=== PATIENT | female | born 1990 | race Caucasian/White ===

== ENCOUNTER 2017-09-07 07:15 | Inpatient (IN) | payer BC ==
[2017-09-07] MEDS ORDERED: ELECTROLYTE-148 SOLN 1,000 ML IV ONE (07:35)
[2017-09-07 08:11] VITALS: BMI 48.6
[2017-09-07] MEDS ORDERED: CITRIC ACID/SODIUM CITRATE 30 ML UNIT-DOSE CUP PO ONE (08:20)
[2017-09-07] MEDS ORDERED: morphine SULFATE/Preservative Free 0.5 MG/ML (1cc Syringe) ONE (09:04)
[2017-09-07] MEDS ORDERED: BUPIVACAINE 0.75% IN DEXTROSE/PF 2ML AMPULE NR ONE (09:04)
[2017-09-07] MEDS ORDERED: ePHEDrine SULFATE 50 MG/1 ML AMPULE ONE (09:06)
[2017-09-07] MEDS ORDERED: OXYTOCIN 20 UNITS in 0.9% NS 20 UNIT/1,000 ML INFUS.BAG IV ONE ×2 (09:37→10:43)
--- NOTE | 2017-09-07 09:42 | HP ---
Past Medical History - Admission History of Present Illness: 27 yo @ 39 1/7 wks by first trimester ultrasound, EDC 09/13/2017 complicated by: 1. Obesity - prepregnancy BMI 42; 29 wt gain this , normal early GCT and GCT at 32 wks Reassuring NST Q wkly Recent EFW 08/11/2017 - 3037g 84% 2. Prior CD, desiring repeat 3. 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 Weeks Gestation by Dates: 40.3 ...EDC by Dates: 09/04/17 ...EDC by Sono: 09/13/17 Heme/Onc: No: Anemia - Past Surgical History Past Surgical History: Yes: Hx Myomectomy: No Hx Transabdominal Cerclage: No - Smoking History Smoking history: Never smoked Have you smoked in the past 12 months: No Aproximately how many cigarettes per day: 0 - Alcohol/Substance Use Hx Alcohol Use: No History of Substance Use: reports: None - Social History History of Recent Travel: No Home Medications - Allergies Allergies/Adverse Reactions: Allergies Allergy/AdvReac Type Severity Reaction Status Date / Time No Known Allergies Allergy Verified 12/30/14 12:31 - Home Medications Home Medications: Ambulatory Orders Vit No.130/Iron/Folic [ Vitamins] 1 each PO DAILY 12/04/14 Family Disease History - Family Disease History Family History: Denies Review of Systems - Review of Systems Constitutional: reports: No Symptoms Neck: reports: No Symptoms Cardiovascular: reports: No Symptoms Respiratory: reports: No Symptoms Gastrointestinal: reports: No Symptoms Genitourinary: reports: No Symptoms Neurological: reports: No Symptoms Endocrine: reports: No Symptoms Hematology/Lymphatic: reports: No Symptoms Psychiatric: reports: No Symptoms Physical Exam - Maternity Vital Signs: Vital Signs Temperature 98 F 09/07/17 07:15 Pulse Rate 73 09/07/17 07:15 Respiratory Rate 18 09/07/17 07:15 Blood Pressure 116/65 09/07/17 07:15 O2 Sat by Pulse Oximetry (%) Constitutional: Yes: Well Nourished, No Distress, Calm Cardiovascular: Yes: Regular Rate and Rhythm Lungs: Clear to auscultation - Abdominal Exam/OB Number of Fetuses: Single Presentation: Vertex Contractions: No Category: I - Physical Exam Psychiatric: Yes: Alert, Oriented - Labs Lab Results: PNL: B positive, antibody negative; RPR NR; HIV negative; HBS AG negative; HCV negative; Parvo immune; Rubella immune; Varicella immune; Hg Lisandra neg; GCT x2 WNL ; GBS positive Hemorrhage Risk Assessment - Risk Factors Medium Risk Factors: Yes: Prior , uterine surgery,or multiple laparotomies High Risk Factors: Yes: None Risk Score: 1 Risk Level: Medium Risk Assessment/Plan 27 yo @ 39 1/7 wks for scheduled CD 1. Admit to L&D 2. Consents reviewed and signed. Discussed risks of delivery including but not limited to infection, bleeding requiring transfusion and damage to surrounding organs such as the bowel or bladder. Discussed risk of injury to . Discussed risk of wound infection and separation. Discussed need for planning of future children and possibility of abnormal placentation. 3. GBS positive 4. Category I FHT 5. Will proceed with CD
[2017-09-07] MEDS ORDERED: ALBUTEROL SO4 18 GM HFA INHALER IH ONE (10:00)
[2017-09-07] MEDS ORDERED: MIDAZOLAM HCL 2 MG/2 ML SINGLE DOSE VIAL ONE (10:19)
[2017-09-07] MEDS: OXYTOCIN 20 UNITS in 0.9% NS 20 UNIT/1,000 ML INFUS.BAG IV SCH ×2 (11:10→18:00)
--- NOTE | 2017-09-07 11:20 | PN ---
Delivery - Delivery Section: Repeat EBL (cc): 700 Delivery, Single - Stages of Labor Placenta: Yes: Expressed - Condition of Systems Support Specialist/Podiatry Doctor Present: Yes Gender: Male Weight: 8 lb 4 oz Position: Left, OT - 1 Minute Total Score: 9 5 Minutes Total Score: 9 - Feeding Plan Initial Plan: Elected not to breastfeed exclusively throughout hospitalization Remarks - Remarks Remarks: Surgeon: Krystian; Assist: Mariola Anesthesia: Spinal; Dr. Patel IVF: 2300 UOP: 50 Findings: male infant; LOT position, 9,9; wt 8lb 4 oz; 20 inches; normal tubes and ovaries bilaterally Dictation: [id number]
[2017-09-07] MEDS ORDERED: METHYLERGONOVINE MALEATE 0.2 MG/1 ML AMP IM PRN (11:32)
[2017-09-07] MEDS ORDERED: morphine SULFATE/Preservative Free 0.5 MG/ML (1cc Syringe) EP ONE (11:43)
[2017-09-07] MEDS ORDERED: ONDANSETRON 4 MG/2 ML VIAL ONE (12:30)
[2017-09-07] MEDS ORDERED: ONDANSETRON 4 MG/2 ML VIAL IVPUSH ONE (12:40)
--- NOTE | 2017-09-07 12:51 | OP ---
DATE OF OPERATION: 09/07/2017 ATTENDING PHYSICIAN: Ekta Boland MD PREOPERATIVE DIAGNOSIS: Intrauterine , 39 weeks; prior section, desiring repeat. POSTOPERATIVE DIAGNOSIS: Intrauterine , 39 weeks; prior section, desiring repeat. FINDINGS: Male , LOT position, compound left hand, Apgars 9 and 9, weight 8 pounds 4 ounces, 20 inches, normal tubes and ovaries bilaterally. INDICATIONS: The patient is a 27-year-old, 2, para 1, with prior section, desiring repeat. She was counseled regarding risks, benefits, alternatives and complications of procedure including infection, bleeding, damage to surrounding organs such as bowel, bladder, injury to , abnormal placentation in future . She expressed understanding and was brought to the operating room. DESCRIPTION OF PROCEDURE: When anesthesia was found to be adequate, patient was prepped and draped in normal sterile fashion and she was placed in dorsal supine position, with a leftward tilt. An approximately 11-cm skin incision was made with a knife and carried down to underlying rectus fascia using the Bovie electrocautery. The fascia was nicked in midline, extended laterally using electrocautery. The inferior portion of the fascial incision was tented up using Anselmo clamps, dissected off underlying rectus muscle using the electrocautery. Attention was brought to the superior portion, where in a similar fashion it was tented up using Anselmo clamps and dissected off underlying rectus muscles using the electrocautery. The muscles were noted to be at midline and the peritoneum was entered sharply. The peritoneal incision was extended superiorly and inferiorly using the Connelly scissors. The Mark O retractor was placed in the abdominal cavity, was used for retraction. The vesicouterine peritoneum was identified, entered sharply, and the bladder flap was created sharply. Hysterotomy was performed using a knife and extended laterally using the bandage scissors. The 's head was brought to the hysterotomy site and vacuum suction was used to assist in the delivery of the head, followed by shoulders and body, without difficulty. A left compound hand was noted upon delivery of the head. The cord was clamped and cut. Cord blood and cord gases were collected and sent. The was handed to the awaiting NICU staff. The placenta was delivered. The uterus was cleared of all clot and debris. The uterus was closed using 0 Biosyn with a running layer, a second layer as an imbricated layer. Copious irrigation was performed. Bilateral tubes and ovaries were examined and found to be normal appearing. The peritoneum was closed using 2-0 Biosyn in running fashion. The rectus muscles were reapproximated using 0 Biosyn in running interrupted fashion. The fascia was closed using 0 Vicryl in a running fashion. Subcutaneous fat was closed using 2-0 Vicryl in a running fashion. The skin was reapproximated using 3-0 Vicryl. The patient tolerated the procedure well. Estimated blood loss was 700 mL. The patient was brought to recovery room in stable condition. Sukhwinder [id number] MTDD
[2017-09-07 12:54] LABS: ARTERIAL BLD GAS O2 SATURATION 48.8 % (90-98.9); ARTERIAL BLOOD GAS BASE EXCESS -4.2 meq/l (-2-2); ARTERIAL BLOOD GAS PCO2 54.6 mmHg (35-45); ARTERIAL BLOOD GAS PO2 25.6 mmHg (80-100); ARTERIAL BLOOD GAS pH 7.26 (7.35-7.45)
[2017-09-07 13:08] LABS: VENOUS PC02 72.9 mmHg (38-52); VENOUS PH 7.16 (7.32-7.42)
[2017-09-07 13:09] LABS: VENOUS PO2 16.5 mmHg (28-48)
[2017-09-07] MEDS ORDERED: ONDANSETRON 4 MG/2 ML VIAL IVPB ONE (15:00)
[2017-09-07] MEDS: IBUPROFEN 800 MG/8 ML IJ IVPB PRN (17:54)
[2017-09-08] MEDS: OXYTOCIN 20 UNITS in 0.9% NS 20 UNIT/1,000 ML INFUS.BAG IV SCH ×2 (01:32→15:52)
[2017-09-08] MEDS: IBUPROFEN 800 MG/8 ML IJ IVPB PRN ×2 (01:45→09:30)
--- NOTE | 2017-09-08 07:58 | PN ---
Post Progress Note - Subjective Subjective: Patient reports swelling / carpal tunnel pain. Mild control with PO meds. Tolerating clears without nausea or vomiting [place] DC'd, no voiding yet. No ambulation or flatus yet. Denies fevers or chills. Post Day: 1 Type of Delivery: Repeat C/S Vital Signs: Vital Signs Temperature 98.6 F 09/08/17 05:50 Pulse Rate 93 H 09/08/17 05:50 Respiratory Rate 18 09/08/17 07:00 Blood Pressure 109/44 09/08/17 05:50 O2 Sat by Pulse Oximetry (%) 97 09/07/17 21:20 Breast Exam: Yes: Soft Incision: Yes: Dressing dry and intact Abdomen/GI: Yes: Abdomen soft, Abdominal Distention (softly distended), Tender Lochia: Yes: Serosa Extremities: Yes: Calves non-tender, Edema (+1) Activity: Ambulating Assessment/Plan 27 yo POD # 1 s/p R CD, afebrile, vital signs stable, doing well 1. Continue routine postoperative care. 2. Follow up AM CBC 3. Rh positive status, no rhogam indicated. 4. Encourage ambulation and incentive spirometer use 5. Continue oral pain medication 6. Anticipate discharge home postoperative day #3 or #4
[2017-09-08] MEDS: ACETAMINOPHEN 325 MG TABLET (FP) PO PRN ×3 (08:10→21:23)
[2017-09-08] MEDS: SIMETHICONE 80 MG TAB.CHEW (FP) PO PRN ×2 (08:12→14:44)
[2017-09-08 08:41] LABS: BASO % 0.4 % (0-2.0); EOS % 2.2 % (0-4.5); HEMATOCRIT 32.1 % (32.4-45.2); HEMOGLOBIN 10.6 GM/dL (10.7-15.3); LYMPH % 25.3 % (8-40); MCH 27.8 pg (25.7-33.7); MEAN CELL VOLUME 84.2 fl (80-96); MEAN PLT VOLUME 7.8 fl (7.5-11.1); MONO % 6.3 % (3.8-10.2); NEUT % 65.8 % (42.8-82.8); PLATELET COUNT 244 K/MM3 (134-434); RBC 3.81 M/mm3 (3.60-5.2)
[2017-09-08] MEDS ORDERED: ALBUTEROL SO4 18 GM HFA INHALER IH PRN (08:47)
--- NOTE | 2017-09-08 09:02 | PN ---
Progress Note, Physician Chief Complaint: POD #1 s/p c/s under spinal with duramorph - Current Medication List Current Medications: Active Medications Acetaminophen (Tylenol -) 650 mg PO Q4H PRN PRN Reason: FEVER Last Admin: 09/08/17 08:10 Dose: 650 mg Albuterol Sulfate (Ventolin Hfa Inhaler -) 2 puff IH Q4H PRN PRN Reason: SHORT OF BREATH/WHEEZING Bisacodyl (Dulcolax Suppository -) 10 mg RC PRN PRN PRN Reason: CONSTIPATION Diphenhydramine HCl (Benadryl Injection -) 25 mg IVPUSH Q4H PRN PRN Reason: Pruritis Diphtheria/Tetanus/Acell Pertussis (Boostrix -) 0.5 ml IM .ONCE ONE Stop: 09/08/17 10:01 Enoxaparin Sodium (Lovenox -) 40 mg SQ DAILY SUDHA Oxytocin/Sodium Chloride (Normal Saline+20 Units Oxytocin -) 20 unit in 1,000 mls @ 125 mls/hr IV ASDIR SUDHA Last Admin: 09/08/17 01:32 Dose: 125 mls/hr Ibuprofen (Motrin -) 600 mg PO Q4H PRN PRN Reason: PAIN LEVEL 1 - 3 Ibuprofen (Caldolor Injection -) 800 mg IVPB Q8H PRN PRN Reason: PAIN LEVEL 3-8 Last Admin: 09/08/17 01:45 Dose: 800 mg Methylergonovine Maleate (Methergine Injection -) 0.2 mg IM Q4H PRN PRN Reason: Excessive Bleeding (L&D) Oxycodone HCl (Roxicodone -) 5 mg PO Q4H PRN PRN Reason: PAIN LEVEL 4 - 6 Oxycodone HCl (Roxicodone -) 10 mg PO Q4H PRN PRN Reason: PAIN LEVEL 7 - 10 Pneumococcal Polyvalent Vaccine (Pneumovax -) 0.5 ml IM .ONCE ONE Stop: 09/08/17 10:01 Simethicone (Mylicon -) 80 mg PO Q4H PRN PRN Reason: GAS Last Admin: 09/08/17 08:12 Dose: 80 mg - Objective Vital Signs: Vital Signs Temperature 98.5 F 09/08/17 08:00 Pulse Rate 94 H 09/08/17 08:00 Respiratory Rate 19 04/05/18 08:00 Blood Pressure 100/61 09/08/17 08:00 O2 Sat by Pulse Oximetry (%) 97 09/07/17 21:20 Labs: CBC, BMP 09/08/17 07:45 Assessment/Plan Doing well- no issues with HOWARD, back pain after spinal. Continue current care
[2017-09-08] MEDS: ENOXAPARIN NA (PORCINE) 40 MG/0.4 ML DISP.SYRIN SQ SCH (09:32)
[2017-09-08] MEDS ORDERED: PNEUMOC 13-VAL CONJ-DIP CRM/PF 0.5 ML DISP.SYRIN IM ONE (10:00)
[2017-09-08] MEDS ORDERED: DIPHTH,PERTUSS(ACELL),TET 0.5 ML DISP.SYRIN IM ONE (10:00)
[2017-09-08] MEDS ORDERED: PNEUMOCOCCAL 23 VACCINE 0.5 ML VIAL IM ONE (10:00)
[2017-09-08] MEDS ORDERED: BISACODYL 10 MG SUPP.RECT RC PRN (11:32)
[2017-09-08] MEDS: oxyCODONE HCL 5 MG TABLET PO PRN ×2 (14:43→21:22)
[2017-09-08] MEDS: IBUPROFEN 600 MG TABLET (FP) PO PRN (18:04)
[2017-09-09] MEDS: SIMETHICONE 80 MG TAB.CHEW (FP) PO PRN ×2 (06:39→16:02)
[2017-09-09] MEDS: oxyCODONE HCL 5 MG TABLET PO PRN ×2 (06:39→18:58)
[2017-09-09] MEDS: ACETAMINOPHEN 325 MG TABLET (FP) PO PRN ×2 (06:40→16:02)
--- NOTE | 2017-09-09 07:23 | PN ---
Progress Note (short form) - Note Progress Note: pod d,s/p repeat c/s doing well, ambulating , tolerating well, passing gas CBC, BMP 09/08/17 07:45 Last Vital Signs Temp Pulse Resp BP Pulse Ox 98.7 F 87 20 105/68 97 09/08/17 22:00 09/08/17 22:00 09/08/17 22:00 09/08/17 22:00 09/08/17 10:00 abdomen soft, no distension, no cva incision dry, clean no calf tenderness lochia mild plan ambulate , cbc in am
[2017-09-09] MEDS: ENOXAPARIN NA (PORCINE) 40 MG/0.4 ML DISP.SYRIN SQ SCH (09:23)
[2017-09-09] MEDS: IBUPROFEN 600 MG TABLET (FP) PO PRN ×2 (10:42→16:01)
[2017-09-10] MEDS: oxyCODONE HCL 5 MG TABLET PO PRN (00:41)
[2017-09-10] MEDS: ENOXAPARIN NA (PORCINE) 40 MG/0.4 ML DISP.SYRIN SQ SCH (09:09)
--- NOTE | 2017-09-10 09:50 | PN ---
Post Progress Note Post Day: 3 Type of Delivery: Repeat C/S Vital Signs: Vital Signs Temperature 98.2 F 09/09/17 22:00 Pulse Rate 99 H 09/09/17 22:00 Respiratory Rate 20 09/09/17 22:00 Blood Pressure 118/73 09/09/17 22:00 O2 Sat by Pulse Oximetry (%) 98 09/09/17 21:00 Breast Exam: Yes: Soft Uterus: Yes: Fundus Firm Incision: Yes: Sutures intact Abdomen/GI: Yes: Abdomen soft, Passing flatus Lochia: Yes: Rubra Lochia, amount: Small Extremities: Yes: Calves non-tender - Labs Labs: CBC WBC 9.0 K/mm3 (4.0-10.0) 09/08/17 07:45 RBC 3.81 M/mm3 (3.60-5.2) 09/08/17 07:45 Hgb 10.6 GM/dL (10.7-15.3) L D 09/08/17 07:45 Hct 32.1 % (32.4-45.2) L 09/08/17 07:45 MCV 84.2 fl (80-96) 09/08/17 07:45 MCH 27.8 pg (25.7-33.7) 09/08/17 07:45 MCHC 33.0 g/dl (32.0-36.0) 09/08/17 07:45 RDW 15.0 % (11.6-15.6) 09/08/17 07:45 Plt Count 244 K/MM3 (134-434) 09/08/17 07:45 MPV 7.8 fl (7.5-11.1) 09/08/17 07:45 Neutrophils % 65.8 % (42.8-82.8) 09/08/17 07:45 Lymphocytes % 25.3 % (8-40) 09/08/17 07:45 Monocytes % 6.3 % (3.8-10.2) 09/08/17 07:45 Eosinophils % 2.2 % (0-4.5) 09/08/17 07:45 Basophils % 0.4 % (0-2.0) 09/08/17 07:45 Assessment/Plan 27yo P2 s/p Repeat c/s afebrile, VSS Doing well Encourage ambulation Baby planned for circumcision, consent signed Dulcolax suppository to improve bowel function cont. routine PP care Anticipate D#4 discharge
--- NOTE | 2017-09-10 09:57 | DS ---
Physical Exam-WARDROBE MANAGER Vital Signs: Vital Signs Temperature 98.2 F 09/09/17 22:00 Pulse Rate 99 H 09/09/17 22:00 Respiratory Rate 20 09/09/17 22:00 Blood Pressure 118/73 09/09/17 22:00 O2 Sat by Pulse Oximetry (%) 98 09/09/17 21:00 Constitutional: Yes: Well Nourished Eyes: Yes: WNL HENT: Yes: WNL, Atraumatic, Normocephalic Neck: Yes: WNL, Supple, Trachea Midline Cardiovascular: Yes: WNL, Regular Rate and Rhythm Respiratory: Yes: WNL, Regular, CTA Bilaterally Gastrointestinal: Yes: WNL, Normal Bowel Sounds, Soft Renal/: Yes: WNL Pelvis: Yes: WNL External Genitalia: Yes: Normal Internal Exam Deferred: Yes ....Post : Yes: Uterus firm, Uterus non-tender Breast(s): Yes: WNL Musculoskeletal: Yes: WNL Extremities: Yes: WNL Integumentary: Yes: WNL Wound/Incision: Yes: Clean/Dry, Well Approximated Neurological: Yes: WNL, Alert, Oriented ...Motor Strength: WNL Psychiatric: Yes: WNL, Alert, Oriented Delivery - Delivery Section: Repeat Type of Anesthesia: Spinal Episiotomy/Laceration: None EBL (cc): 700 Delivery, Single - Stages of Labor Date of Delivery: 09/07/17 Time of Delivery: 10:10 Time Placenta Delivered: 10:11 Placenta: Yes: Expressed - Condition of Supervisor Cigar Making Hand/Marble And Granite Polisher Present: Yes Name: Serafin Ann Gender: Male Weight: 8 lb 4 oz Position: Left, OT Total Hours ROM (Hrs/Mins): 1min - 1 Minute Total Score: 9 5 Minutes Total Score: 9 - [place] Feeding Plan Initial Plan: Exclusive throughout hospitalization Discharge Summary Reason For Visit: C/SECTION Procedures: Principal: Repeat C/section. Penile circumcision Hospital Course: Unremarkable Condition: Good - Instructions Diet, Activity, Other Instructions: Physical activity Resume your normal everyday activity as tolerated no heavy lifting or exercise until seen by your surgeon. You may walk unlimited marvin of and climb stairs. You may resume driving the car when you feel safe and comfortable behind the wheel. No sexual activity as instructed. Wound care If you have a bandage, leave it on, and keep dry for 48-72 hours. After that time discard the outer bandage. If they are tapes on the skin under the out of bandage leave them in place. They will peel off in the next 7 to 10 days. Do Not Peel them off. You may shower the day after surgery. If there are tapes present on the skin, you may shower over them. Diet There are no dietary restrictions. Eat healthy, high-fiber foods. Drink 6 to 8 glasses of liquid each day. This will assist in keeping your bowels are regular. Pain management You may take Tylenol or acetaminophen or Ibuprofen (for example, Motrin, Advil etc.) from my pain prescription medication is ordered should be taken as prescribed for moderate to severe pain. Call MD for any of the following: Severe pain not relieved by medication Fever of 101 or higher Excessive bleeding or drainage on dressing Inability to urinate Referrals: Ekta Boland MD [Staff Physician] - Disposition: HOME - Home Medications Comprehensive Discharge Medication List: Ambulatory Orders Vit No.130/Iron/Folic [ Vitamins] 1 each PO DAILY MDD 1 Albuterol Sulfate Inhaler - [Ventolin Hfa Inhaler -] 1 - 2 inh PO QID PRN
[2017-09-10] MEDS: SIMETHICONE 80 MG TAB.CHEW (FP) PO PRN ×2 (12:48→21:23)
[2017-09-10] MEDS: ACETAMINOPHEN 325 MG TABLET (FP) PO PRN ×2 (12:48→21:23)
[2017-09-10] MEDS: IBUPROFEN 600 MG TABLET (FP) PO PRN ×2 (12:49→21:22)
[2017-09-10 12:55] LABS: BASO % 0.4 % (0-2.0); EOS % 3.3 % (0-4.5); HEMOGLOBIN 10.9 GM/dL (10.7-15.3); MCH 28.2 pg (25.7-33.7); MCHC 33.1 g/dl (32.0-36.0); MEAN PLT VOLUME 7.7 fl (7.5-11.1); MONO % 5.6 % (3.8-10.2); NEUT % 58.7 % (42.8-82.8); PLATELET COUNT 315 K/MM3 (134-434); RBC 3.88 M/mm3 (3.60-5.2); RDW 14.9 % (11.6-15.6); WHITE BLOOD COUNT 9.1 K/mm3 (4.0-10.0)
[2017-09-11 08:59] VITALS: BP 120/66; PULSE 84; TEMP 98.5
[2017-09-11] MEDS: SIMETHICONE 80 MG TAB.CHEW (FP) PO PRN (09:29)
[2017-09-11] MEDS: ACETAMINOPHEN 325 MG TABLET (FP) PO PRN (09:29)
[2017-09-11] MEDS: ENOXAPARIN NA (PORCINE) 40 MG/0.4 ML DISP.SYRIN SQ SCH (09:29)
[2017-09-11] MEDS: IBUPROFEN 600 MG TABLET (FP) PO PRN (09:30)
--- NOTE | 2017-09-13 17:08 | PATH ---
Surgical Pathology Report Patient Name: DIMTRIY JIANG [facility]. Rec. #: [id number] /Age/Gender: 1990 (Age: 27) / F Account: [id number] Location: [facility] OBS/ENERGY CONSERVATION TECHNICIAN Taken: 09/07/2017 Received: 09/08/2017 Reported: 09/13/2017 Physicians: Ekta Boland Specimen(s) Received PLACENTA Clinical History Repeat , 39.1 weeks Final Diagnosis PLACENTA, SECTION: 582 g THIRD TRIMESTER PLACENTA WITH TRIVASCULAR UMBILICAL CORD AND UNREMARKABLE PLACENTAL MEMBRANES. Electronically Signed Katheryn Harrison M.D. Gross Description The specimen is received fresh labeled placenta and is a 582 gram, 16.0 x 13.5 x 3.3 cm. placenta with attached membranes and umbilical cord. The attached membranes are salas, translucent with focal opacities and insert marginally. The umbilical cord measures 17 cm. in length and averages 1.3 cm. in diameter. The cord inserts eccentrically, 3.5 cm. to the nearest margin. No true knots or strictures are identified. Cut surface of the umbilical cord reveals 3 vessels. The surface is moreno-blue with minimal fibrin deposition and appropriate caliber vessels. The maternal surface is red-brown with focal defects. Sectioning reveals red-brown, spongy parenchyma. No lesions are identified. Sales Negotiator sections are submitted in three cassettes as follows: 1- membrane rolls and umbilical cord; 2-3- full thickness sections of placenta. /09/12/2017 saudi09/12/2017
== END 2017-09-11 12:00 | disposition home or self-care (01) | DRG 765 ==
LOC: JLDR 07:15 → J3W 13:12
PROVIDERS: ADMIT Obstetrics & Gynecology; ATTEND Obstetrics & Gynecology
PROC: 10D00Z1 Extraction of Products of Conception, Low, Open Approach (ICD-10-PCS; principal; 2017-09-07)
DX: O34.219 Maternal care for unspecified type scar from previous cesarean delivery (principal); Z68.42 Body mass index [BMI] 45.0-49.9, adult; Z37.0 Single live birth; O99.214 Obesity complicating childbirth; E66.8 Other obesity; Z3A.39 39 weeks gestation of pregnancy; G51.0 Bell's palsy
CPT/HCPCS: 36415; 36600; 82803; 85025; 88307-TC; 90715; 90732; 94010; G0009